=== PATIENT | male | born 1995 | race African-American/Black ===

== ENCOUNTER 2024-05-24 15:02 | Emergency (ER) | payer BC ==
[~2024-05-24] VITALS: Ht 185.4 cm; Wt 74.8 kg
[2024-05-24 15:20] VITALS: TEMP 98.7; O2SAT 99
[2024-05-24 16:02] LABS: CLARITY URINE CLEAR (CLEAR); COLOR URINE YELLOW (YELLOW); GLUCOSE URINE NEGATIVE (NEGATIVE); KETONES URINE NEGATIVE (NEGATIVE); LEUKOCYTE ESTERASE URINE NEGATIVE (NEGATIVE); NITRITE URINE NEGATIVE (NEGATIVE); OCCULT BLOOD URINE NEGATIVE (NEGATIVE); PH URINE 5.5 (4.5-8.0); PROTEIN URINE NEGATIVE (NEGATIVE); SPECIFIC GRAVITY URINE 1.015 (1.005-1.030); UROBILINOGEN URINE 0.2 E.U./dL (0.2-1.0)
[2024-05-24 16:10] LABS: BASOPHILS % 0.6 % (0.0-2.0); HEMOGLOBIN. 14.9 g/dL (14.0-18.0); LYMPHOCYTES % 42.1 % (20.0-50.0); MEAN CORPUSCULAR HGB CONC 33.9 g/dL (31.0-37.0); MEAN CORPUSCULAR VOLUME 94.3 fL (80.0-94.0); MONOCYTES % 6.1 % (2.0-8.0); NEUTROPHILS % 48.2 % (40.0-76.0); PLATELET 251 x1000/uL (130-400); RED BLOOD CELL COUNT 4.67 mill/uL (4.7-6.1); WHITE BLOOD COUNT 6.2 x1000/uL (4.5-11.0)
[2024-05-24 16:13] LABS: CHLORIDE 107 mEq/L (98-107); POTASSIUM 4.2 mEq/L (3.5-5.1); SODIUM 141 mEq/L (136-145)
[2024-05-24 16:14] LABS: CALCIUM 9.5 mg/dL (8.7-10.4); CARBON DIOXIDE 27 mEq/L (21-32)
[2024-05-24 16:19] LABS: GLUCOSE 102 mg/dL (70-105); UREA NITROGEN BLOOD 14 mg/dL (9-23)
[2024-05-24 16:21] LABS: ALANINE AMINOTRANSFERASE 22 IU/L (10-49); ALBUMIN 4.9 g/dL (3.2-4.8); ASPARTATE AMINOTRANSFERASE 20 IU/L (<34); BILIRUBIN DIRECT 0.1 mg/dL (<=3.0); BILIRUBIN TOTAL 0.5 mg/dL (0.1-1.0); PROTEIN TOTAL 7.4 g/dL (6.0-8.3)
[2024-05-24 16:24] LABS: TROPONIN I HIGH SENSITIVITY < 4 ng/L (3.0-53)
[2024-05-24] MEDS: ACETAMINOPHEN 325MG TABLET PO ONE (16:38)
[2024-05-24] MEDS: SODIUM CHLORIDE 0.9% 500 ML IV ONE (16:38)
[2024-05-24] MEDS: ONDANSETRON HCL 4MG/2ML INJ IV ONE (16:38)
[2024-05-24] MEDS: KETOROLAC 15MG/ML VIAL IV ONE (17:37)
[2024-05-24] MEDS ORDERED: ASPI-740 PO (18:14)
[2024-05-24 18:32] VITALS: BP 135/70; PULSE 70; RESP 18
== END 2024-05-24 18:34 | disposition home or self-care (01) ==
LOC: ER 15:02
DX: R55 Syncope and collapse (principal); R51.9 Headache, unspecified
CPT/HCPCS: 80076; 80048; 81003; 83690; 85025; 86850; 86900; 86901; 84484; 36415; 93005; 96361; 96374; 96375; 99284; J1885; J2405; J7040; Z7610 ×2

== ENCOUNTER 2024-09-04 12:41 | Emergency (ER) | payer BC ==
[~2024-09-04] VITALS: Ht 177.8 cm; Wt 68.0 kg
[~2024-09-04 12:41] MED LIST: ASPI-740 PO
[2024-09-04 12:44] VITALS: TEMP 98; O2SAT 100
[2024-09-04] MEDS: TETANUS, DIPHTHERIA, PERTUSSIS VAC/PF 0.5ML (>10YR OLD) IM ONE (13:30)
[2024-09-04] MEDS: LIDOCAINE HCL/EPINEPHRINE 1%-EPI 1:100,000 10ML VIAL INFIL ONE (13:30)
[2024-09-04] MEDS ORDERED: IBUP-2029 MT (16:01)
[2024-09-04 16:47] VITALS: BP 148/77; PULSE 74; RESP 19; O2SAT 99
== END 2024-09-04 16:48 | disposition home or self-care (01) ==
LOC: ER 12:41
DX: S01.511A Laceration without foreign body of lip, initial encounter (principal); S20.212A Contusion of left front wall of thorax, initial encounter
CPT/HCPCS: 71045; 73110; 73130; 70450; 70486; 90715; 12013; 90471; 99285; Z7610